=== PATIENT | female | born 1975 | race Caucasian/White ===

== ENCOUNTER 2019-06-06 19:30 | Emergency (ER) | payer BC ==
[2019-06-06] MEDS ORDERED: Sodium Chloride 0.9% 1,000 ML IV ONE (19:32)
[2019-06-06] MEDS ORDERED: Sodium Chloride 0.9% 10 ML Syringe FLUSH PRN (19:44)
--- NOTE | 2019-06-06 20:04 | CT ---
[id number] CT/CT Head WO IV EXAM: NONCONTRAST HEAD CT INDICATION: STROKE COMPARISON: None. DISCUSSION: Hypodensity is seen in the left temporal lobe, the left lentiform nucleus, the anterior and posterior limbs of the left internal capsule and the left frontal periventricular white matter with loss of brock-white matter differentiation. Overall this area measures about 5.5 cm in diameter and is compatible with a subacute infarct involving a portion of the MCA territory. There is mild sulcal effacement and slight effacement of the left lateral ventricle, but no significant midline shift or evidence of impending herniation. No hemorrhagic transformation. No hydrocephalus, extra-axial fluid collection. Fluid in the maxillary sinuses is compatible with acute sinusitis. There is also mild right and [id number] left maxillary sinus mucosal thickening. Mild to moderate scattered ethmoid sinus mucosal thickening. Results called 7:55 PM 06/06/2019. IMPRESSION: 1. Subacute appearing left middle cerebral artery territory infarct involving portions of the the left frontal white matter, the left basal ganglia and the left temporal lobe. Mild sulcal effacement and left lateral ventricle effacement without evidence of an impending herniation or other complication. Milton Ponce MD 06/06/192002 Thank you for allowing us to participate in the care of your patient.
--- NOTE | 2019-06-06 20:16 | EDM.PDOC ---
ED HPI GENERAL MEDICAL PROBLEM - General Chief Complaint: Neuro Symptoms/Deficits Stated Complaint: R SIDED ASPHASIA Time Seen by Provider: 06/06/19 19:35 Source of Information: Reports: EMS, Family History Limitations: Reports: Physical Impairment - History of Present Illness INITIAL COMMENTS - FREE TEXT/NARRATIVE: Patient presents to ER with right sided weakness. Family had called 911 for a welfare check on her as she was not answering her phone and they were unable to get in to the house. Police assisted in to home and father found her lying on her bathroom floor. Was lying in urine and feces, speech slurred, called for EMS. No lights were on in the home, EMS had to use flashlights. EMS reports right side flaccid, speech slurred but does speak, some words understandable. No lateral gaze. Obvious dehydration, mouth very dry. IV was started enroute to scene. Patient believes has been lying on the floor for 2 days. Family last spoke to her 4 days ago, father questions if speech was slurred at that time. PMH: reported per father, has history of asthma. Does use inhaler. Unknown any drug use Onset: Unknown/Unsure Duration: Day(s): Location: Reports: Upper Extremity, Right, Lower Extremity, Right Severity: Severe Associated Symptoms: Reports: Weakness. Denies: Chest Pain, Nausea/Vomiting, Shortness of Breath Treatments HOSIERY REPAIRER: Reports: See EMS Report - Related Data Allergies Allergy/AdvReac Type Severity Reaction Status Date / Time No Known Allergies Allergy Verified 07/06/13 18:18 Past Medical History Respiratory History: Reports: Asthma Social & Family History - Tobacco Use Smoking Status *Q: Current Every Day Smoker ED ROS GENERAL - Review of Systems Review Of Systems: See Below Reason Not Obtained: speech slurred, denies pain. Constitutional: Reports: Weakness Neurological: Reports: Trouble Speaking, Difficulty Walking, Weakness ED EXAM, NEURO - Physical Exam Exam: See Below Exam Limited By: Physical Impairment General Appearance: Alert, Other (patient incontinent of urine, mouth very dry. ) Eye Exam: Bilateral Eye: EOMI, PERRL Ears: Normal External Exam, Normal TMs Nose: Normal Inspection, Normal Mucosa, No Blood Throat/Mouth: Other (mucous membranes very dry) Head Exam: Normocephalic Neck: Normal Inspection, Supple, Non-Tender Respiratory/Chest: No Respiratory Distress, Lungs Clear, Normal Breath Sounds Cardiovascular: Tachycardia GI/Abdominal: Normal Bowel Sounds, Soft, Non-Tender Neurological: Alert, Other (Patient alert, oriented to person and place. Speech is slurred. NIH score of 15. No lateral gaze. Left side facial droop. Right arm and leg flaccid, loss of sensation to right arm and leg. No reflexes noted on right side.) Skin Exam: Cool, Other (bruising noted to right knee, along left hip) Course - Vital Signs Last Recorded V/S: Last Vital Signs Temp 98.8 F 06/06/19 20:08 Pulse 110 H 06/06/19 20:08 Resp 22 H 06/06/19 20:08 BP 143/85 H 06/06/19 20:08 Pulse Ox 97 06/06/19 20:08 - Orders/Labs/Meds Orders: Active Orders 24 hr Category Date Time Status Assess Neurological Status [RC] CONTINUOUS Care 06/06/19 19:44 Active Blood Glucose Check, Bedside [RC] STAT Care 06/06/19 19:44 Active Cardiac Monitoring [RC] CONTINUOUS Care 06/06/19 19:44 Active Communication Order [RC] STAT Care 06/06/19 19:44 Active Height and Weight [RC] UPON Care 06/06/19 19:44 Active Insert Huertas Catheter [Insert Urinary Catheter] [OM.PC] Care 06/06/19 20:30 Ordered Q24H NIH Stroke Scale [RC] Q15M Care 06/06/19 19:44 Active NIH Stroke Scale [RC] STAT Care 06/06/19 19:44 Active Nursing Bedside Swallow Screen [RC] STAT Care 06/06/19 19:44 Active Oxygen Therapy, ED [RC] ASDIRECTED Care 06/06/19 19:44 Active Urinary Catheter Assessment [RC] ASDIRECTED Care 06/06/19 20:29 Ordered Vital Signs [RC] Q15M Care 06/06/19 19:44 Active DRUG SCREEN, URINE [URCHEM] Stat Lab 06/06/19 20:16 Ordered Sodium Chloride 0.9% [Saline Flush] Med 06/06/19 19:44 Active 10 ml FLUSH ASDIRECTED PRN Peripheral IV Insertion Adult [OM.PC] Stat Oth 06/06/19 19:44 Ordered Peripheral IV Insertion Adult [OM.PC] Stat Oth 06/06/19 19:44 Ordered Resuscitation Status Stat Resus Stat 06/06/19 19:44 Ordered Medication Orders Sodium Chloride (Saline Flush) 10 ml FLUSH ASDIRECTED PRN PRN Reason: Keep Vein Open Labs: Laboratory Tests 06/06/19 06/06/19 06/06/19 Range/Units 19:55 19:55 19:55 WBC 14.6 H (4.0-10.0) x10^3/uL RBC 5.34 (4.00-5.50) x10^6/uL Hgb 11.2 L (12.0-16.0) g/dL Hct 37.0 (33.0-47.0) % MCV 69.3 L (78.0-93.0) fL MCH 21.0 L (26.0-32.0) pg MCHC 30.3 L (32.0-36.0) g/dL RDW Coeff of Shamar 17.8 H (10.0-15.0) % Plt Count 482 H (130-400) x10^3/uL Add Manual Diff Yes Neutrophils % (Manual) 86 H (50-80) % Lymphocytes % (Manual) 6 L (25-50) % Reactive Lymphs % 1 H (0) % Monocytes % (Manual) 7 (2-11) % Vacuolated Monocytes Rare Platelet Estimate Increased H Hypochromasia 1+ slight H Anisocytosis 1+ slight H Microcytosis 1+ slight H Target Cells 1+ slight H Ovalocytes 1+ slight H PT 11.0 (10.0-12.8) SEC INR 1.0 L (2.0-3.5) APTT 22.4 L (24.0-36.0) SEC Sodium 148 H (136-145) mmol/L Potassium 4.3 (3.5-5.1) mmol/L Chloride 109 H (98-107) mmol/L Carbon Dioxide 17 L (21-32) mmol/L Anion Gap 26.3 H (10-20) mmol/L BUN 32 H (7-18) mg/dL Creatinine 1.0 (0.55-1.02) mg/dL Est Cr Clr Drug Dosing 66.51 mL/min Estimated GFR (MDRD) 60 Glucose 85 (74-106) mg/dL Calcium 9.4 (8.5-10.1) mg/dL Corrected Calcium 9.88 (8.5-10.1) mg/dL Total Bilirubin 0.4 (0.2-1.0) mg/dL AST 54 H (15-37) U/L ALT 55 (14-59) U/L Alkaline Phosphatase 96 (46-116) U/L Creatine Kinase 707 H* (26-192) U/L POC Troponin I (0.00-0.08) ng/mL Total Protein 8.8 H (6.4-8.2) g/dL Albumin 3.4 (3.4-5.0) g/dL Globulin 5.4 Albumin/Globulin Ratio 0.63 03/07/20 Range/Units 19:58 WBC (4.0-10.0) x10^3/uL RBC (4.00-5.50) x10^6/uL Hgb (12.0-16.0) g/dL Hct (33.0-47.0) % MCV (78.0-93.0) fL MCH (26.0-32.0) pg MCHC (32.0-36.0) g/dL RDW Coeff of Shamar (10.0-15.0) % Plt Count (130-400) x10^3/uL Add Manual Diff Neutrophils % (Manual) (50-80) % Lymphocytes % (Manual) (25-50) % Reactive Lymphs % (0) % Monocytes % (Manual) (2-11) % Vacuolated Monocytes Platelet Estimate Hypochromasia Anisocytosis Microcytosis Target Cells Ovalocytes PT (10.0-12.8) SEC INR (2.0-3.5) APTT (24.0-36.0) SEC Sodium (136-145) mmol/L Potassium (3.5-5.1) mmol/L Chloride (98-107) mmol/L Carbon Dioxide (21-32) mmol/L Anion Gap (10-20) mmol/L BUN (7-18) mg/dL Creatinine (0.55-1.02) mg/dL Est Cr Clr Drug Dosing mL/min Estimated GFR (MDRD) Glucose (74-106) mg/dL Calcium (8.5-10.1) mg/dL Corrected Calcium (8.5-10.1) mg/dL Total Bilirubin (0.2-1.0) mg/dL AST (15-37) U/L ALT (14-59) U/L Alkaline Phosphatase (46-116) U/L Creatine Kinase (26-192) U/L POC Troponin I 0.00 (0.00-0.08) ng/mL Total Protein (6.4-8.2) g/dL Albumin (3.4-5.0) g/dL Globulin Albumin/Globulin Ratio Meds: Medications Generic Name Dose Route Start Last Admin Trade Name Freq PRN Reason Stop Dose Admin Sodium Chloride 10 ml 06/06/19 19:44 Saline Flush FLUSH ASDIRECTED PRN Keep Vein Open - Re-Assessments/Exams Free Text/Narrative Re-Assessment/Exam: 06/06/19 193-Initial stroke NIH scale done, score of 15, see flow sheet. 1999- CT scan report received and shows left side infarct. 2004-Contacted [facility], spoke with Dr. Burgess. Agreed to accept the patient in transfer. Departure - Departure Time of Disposition: 20:30 Disposition: DC/Tfer to [facility] Condition: Undetermined Clinical Impression: CVA (cerebral vascular accident) Qualifiers: CVA mechanism: embolism Precerebral and cerebral artery: middle cerebral artery Laterality of affected vessel: left Qualified Code(s): I63.412 - Cerebral infarction due to embolism of left middle cerebral artery - Discharge Information *PRESCRIPTION DRUG MONITORING PROGRAM REVIEWED*: No *COPY OF PRESCRIPTION DRUG MONITORING REPORT IN PATIENT SWETHA: No Referrals: PCP,None [Primary Care Provider] - Forms: ED Department Discharge, Interfacility Transfer EMTALA Additional Instructions: Transfer ALS to [facility] Sepsis Event Note - Evaluation Sepsis Screening Result: No Definite Risk - Focused Exam Vital Signs: Vital Signs Temp Pulse Resp BP Pulse Ox 06/06/19 20:08 98.8 F 110 H 22 H 143/85 H 97 Date Exam was Performed: 06/06/19 Time Exam was Performed: 20:36 - My Orders Last 24 Hours: My Active Orders 06/06/19 19:44 Assess Neurological Status [RC] CONTINUOUS Blood Glucose Check, Bedside [RC] STAT Cardiac Monitoring [RC] CONTINUOUS Communication Order [RC] STAT Height and Weight [RC] UPON NIH Stroke Scale [RC] Q15M NIH Stroke Scale [RC] STAT Nursing Bedside Swallow Screen [RC] STAT Oxygen Therapy, ED [RC] ASDIRECTED Vital Signs [RC] Q15M Sodium Chloride 0.9% [Saline Flush] 10 ml FLUSH ASDIRECTED PRN Peripheral IV Insertion Adult [OM.PC] Stat Peripheral IV Insertion Adult [OM.PC] Stat Resuscitation Status Stat 06/06/19 20:16 DRUG SCREEN, URINE [URCHEM] Stat 06/06/19 20:29 Urinary Catheter Assessment [RC] ASDIRECTED 06/06/19 20:30 Insert Huertas Catheter [Insert Urinary Catheter] [OM.PC] Q24H - Assessment/Plan Last 24 Hours: My Active Orders 06/06/19 19:44 Assess Neurological Status [RC] CONTINUOUS Blood Glucose Check, Bedside [RC] STAT Cardiac Monitoring [RC] CONTINUOUS Communication Order [RC] STAT Height and Weight [RC] UPON NIH Stroke Scale [RC] Q15M NIH Stroke Scale [RC] STAT Nursing Bedside Swallow Screen [RC] STAT Oxygen Therapy, ED [RC] ASDIRECTED Vital Signs [RC] Q15M Sodium Chloride 0.9% [Saline Flush] 10 ml FLUSH ASDIRECTED PRN Peripheral IV Insertion Adult [OM.PC] Stat Peripheral IV Insertion Adult [OM.PC] Stat Resuscitation Status Stat 06/06/19 20:16 DRUG SCREEN, URINE [URCHEM] Stat 06/06/19 20:29 Urinary Catheter Assessment [RC] ASDIRECTED 06/06/19 20:30 Insert Huertas Catheter [Insert Urinary Catheter] [OM.PC] Q24H
[2019-06-06 20:30] LABS: ANION GAP 26.3 mmol/L (10-20)
[2019-06-06 20:33] LABS: PTT,PARTIAL THROMBOPLSTIN TIME 22.4 SEC (24.0-36.0)
[2019-06-06 20:46] LABS: BARBITURATE SCREEN,URINE NEGATIVE (NEGATIVE); BENZODIAZEPINES SCREEN,URINE NEGATIVE (NEGATIVE); EDDP,URINE SCREEN NEGATIVE (NEGATIVE); METHAMPHETAMINE SCREEN, URINE NEGATIVE (NEGATIVE); TCA SCREEN,URINE NEGATIVE (NEGATIVE); THC SCREEN,URINE 50 NG/ML NEGATIVE (NEGATIVE)
== END 2019-06-06 20:38 ==
LOC: VM.ED 19:30
DX: I63.412 Cerebral infarction due to embolism of left middle cerebral artery (principal); F17.200 Nicotine dependence, unspecified, uncomplicated; J45.909 Unspecified asthma, uncomplicated
CPT/HCPCS: 36415; 51702; 70450; 80053; 80305-QW; 82550; 84484; 85025; 85610; 85730; 93005; 96360; 99285-25; J7030